=== PATIENT | female | born 1940 | race Caucasian/White ===

== ENCOUNTER 2018-02-13 18:55 | Inpatient (IN) | payer MEDICARE, SELFPAY ==
[2017-11-30 06:28] VITALS: BMI 28.6
[2018-02-13] VITALS (10 sets, daily range): BP systolic 118–135; BP diastolic 31–71; PULSE 86–106; RESP 19–36; TEMP 36.6–36.7; O2SAT 86–99
--- NOTE | 2018-02-13 19:22 | PC.NURSE ---
Pt states that she feels fine. Pt is observed to be in tripod position. 92% on 4L.
--- NOTE | 2018-02-13 19:32 | DI.RAD.S_ITS ---
PROCEDURE: XR CHEST 1V INDICATIONS: SOB TECHNIQUE: One view of the chest was acquired. COMPARISON: [facility], CR, XR CHEST 1V, 11/30/2017, 9:33. FINDINGS: Surgical changes and devices: None. Lungs and pleura: There is increased pulmonary vascularity. Increased patchy opacities are present within the right base. Trace bilateral effusions. Mild appearance increased opacity is noted in the left perihilar region. Mediastinum: Mediastinal contours appear normal. Heart size is mildly enlarged. Bones and chest wall: No suspicious bony lesions. Overlying soft tissues appear unremarkable. IMPRESSION: Trace effusions with bilateral opacities most prominent in the right base, suggestive of developing airspace disease such as pneumonia. Focal edema cannot be excluded. Recommend interval followup to document resolution and exclude presence of underlying mass lesion, particularly left perihilar opacity. Dictated by: Dayna Thao M.D. on 02/13/2018 at 20:41 Approved by: Dayna Thao M.D. on 02/13/2018 at 20:42
--- NOTE | 2018-02-13 19:36 | ED.WEAKNESS ---
HPI - Weakness General Chief complaint: Weakness Stated complaint: Lethargic Time Seen by Provider: 02/13/18 19:00 Source: patient, family and EMS Mode of arrival: EMS Limitations: no limitations History of Present Illness HPI Narrative: 77-year-old female presents by EMS for evaluation of lethargy and increased difficulty in breathing at home. She has a long history end-stage COPD and is on home oxygen at 2.5 liters/minute. She has been much more sleepy than normal with decreased appetite. She denies any fever or chills but has had cough which family reports sounding harsh. She denies any increase in her oxygen or use of nebulizers. She has had no nausea, vomiting or diarrhea. Last admission In November for a lower GI bleed. Patient herself is rather cantankerous and states she does not want to be here, much of the history from family MD Complaint: generalized weakness Onset (ago): day(s) Duration: constant Location: generalized Migration: none Severity: moderate Relieving factors: none Exacerbating factors: movement Related Data Home Medications Medication Instructions Recorded Confirmed aspirin 325 mg PO DAILY 11/30/17 02/13/18 metoprolol succinate [Toprol XL] 25 mg PO QDAY 11/30/17 02/13/18 simvastatin [Zocor] 20 mg PO QHS 11/30/17 02/13/18 Previous Rx's Medication Instructions Recorded albuterol sulfate 2.5 mg INH [id number] PRN #100 neb 12/04/17 furosemide 20 mg PO DAILY #30 tab 12/04/17 tiotropium bromide [Spiriva with 18 mcg INH RTDAILY #1 inh 12/04/17 [facility]] Allergies Allergy/AdvReac Type Severity Reaction Status Date / Time No Known Drug Allergies Allergy Verified 11/30/17 04:48 Review of Systems Review of Systems All systems reviewed & are unremarkable except as noted in HPI and below Constitutional Denies chills, Denies fever(s), Denies lethargy and Denies weakness Eyes Denies change in vision, Denies eye discharge, Denies irritation and Denies loss of vision ENT Ears, Nose, Mouth, and Throat: Denies change in voice, Denies neck pain and Denies sore throat Cardiovascular Denies chest pain, Denies irregular heart rhythm, Denies lightheadedness, Denies palpitations, Reports dyspnea, Reports dyspnea on exertion and Denies orthopnea Respiratory Reports cough, Reports dyspnea, Reports dyspnea on exertion and Denies wheezing Gastrointestinal Gastrointestinal: Denies abdominal pain, Denies change in bowel habits, Denies diarrhea, Denies nausea and Denies vomiting Genitourinary Denies hematuria, Denies flank pain, Denies urinary incontinence and Denies urinary urgency Musculoskeletal Denies neck pain Integumentary/Breasts Denies pruritus, Denies erythema, Denies rash and Denies wounds Neurologic Denies confusion, Denies loss of vision and Denies weakness Psychiatric Denies anxiety, Denies confusion, Denies depression, Denies homicidal ideation and Denies suicidal ideation Endocrine Denies palpitations Hematologic/Lymphatic Denies easy bruising Allergic/Immunologic Denies wheezing [facility] Social History household members: family Smoking Status: Former smoker alcohol intake: former Exam Narrative Exam Narrative: 77-year-old female is a bit grumpy but playful, she is in mild distress with conversational dyspnea Initial Vital Signs Initial Vital Signs: Vital Signs Temperature 98.1 F 02/13/18 18:57 Pulse Rate 106 H 02/13/18 18:57 Respiratory Rate 31 H 02/13/18 18:57 Blood Pressure 134/59 H 02/13/18 18:57 Pulse Oximetry 86 L 02/13/18 18:57 Const General: cooperative, well developed and in distress Nutritional Appearance: well nourished Orientation: alert, awake, oriented x3 and not confused [facility] Head: normocephalic and atraumatic Ears: external ears normal and TM's normal bilaterally Nose: external nose normal and No nasal discharge Face and sinus: sinuses nontender, face symmetric, no sinus tenderness and No dry mucous membranes Mouth: oral mucosae normal and moist mucous membranes Teeth and gingiva: dentition normal Throat: tonsils normal and uvula midline Eyes General: appearance normal, both eyes and all related structures Eyelids: eyelids normal Conjunctivae: conjunctivae normal Sclera: sclerae normal Pupils: PERRL EOM: EOM intact bilaterally Neck Neck: normal visual inspection, trachea midline, No lymphadenopathy, No midline deformity and No JVD Lymphatic: No lymphedema Chest Chest: normal inspection of the chest Resp Effort & Inspection: abnormal respiratory pattern, audible wheezes, cough, respiratory distress and no use of accessory muscles Auscultation: diminished lung sounds, no rales, rhonchi and no wheezes Cardio Rate: regular rate Rhythm: regular rhythm Heart Sounds: no click, no gallops, no murmurs and no rubs Pulses: normal peripheral pulses GI Inspection: non-distended Palpation: soft, no hepatosplenomegaly, No guarding, No pulsatile mass and No tender Auscultation: normal bowel sounds Back/Spine/Pelvis Back: No CVA tenderness Cervical Spine: cervical ROM normal and No pain with cervical ROM Thoracic/Lumbar Spine: thoracic and lumbar spine normal to inspection Skin General: no rashes or lesions noted, No jaundice and No petechiae Neuro General: alert, oriented x3, gait normal and no focal motor deficits Speech: speech normal Extrem General: full ROM, no clubbing, cyanosis or edema, no pedal edema and no calf tenderness Psych Appearance: well kempt Mental Status: mental status grossly normal Attitude: cooperative Thought Content: normal and suicidality Judgment: judgment good Course Orders Ordered: ED Orders 02/13/18 21:30 Urinalysis and Microscopic Stat Urine Culture Stat 02/13/18 21:52 Blood Culture Stat Acetaminophen (Tylenol) 650 mg PO Q6HR PRN PRN Reason: As Needed for Fever/Mild Pain Albuterol (Ventolin) 2.5 mg INH [id number] PRN PRN Reason: Shortness Of Breath Albuterol/Ipratropium (Duoneb) 3 ml INH [id number] NISA Enoxaparin Sodium (Lovenox) 40 mg SUBCUT DAILY NISA Sodium Chloride (Normal Saline 0.9%) 1,000 mls @ 100 mls/hr IV CONT NISA Last Admin: 02/13/18 23:07 Dose: 100 mls/hr Methylprednisolone (Solu-Medrol 125 Mg Vial) 60 mg IV Q8HR NISA Ondansetron HCl (Zofran) 4 mg IV Q4HR PRN PRN Reason: Nausea And Vomiting Pantoprazole Sodium (Protonix) 40 mg IV NOW ONE Stop: 02/14/18 06:17 Discontinued Medications Albuterol/Ipratropium (Duoneb) 3 ml INH NOW ONE Stop: 02/13/18 19:32 Last Admin: 02/13/18 19:58 Dose: 3 ml Sodium Chloride (Normal Saline 0.9%) 1,000 mls @ 150 mls/hr IV CONT NISA Last Infusion: 02/13/18 22:33 Dose: 0 mls/hr Admin: 02/13/18 20:05 Dose: 150 mls/hr Azithromycin 500 mg/ Dextrose 250 mls @ 250 mls/hr IV NOW ONE Stop: 02/13/18 21:21 Last Infusion: 02/13/18 22:36 Dose: 0 mls/hr Admin: 02/13/18 22:30 Dose: 250 mls/hr Ceftriaxone Sodium/Dextrose (Rocephin) 1 gm in 50 mls @ 100 mls/hr IV NOW ONE Stop: 02/13/18 21:49 Last Infusion: 02/13/18 22:26 Dose: 0 mls/hr Admin: 02/13/18 21:56 Dose: 100 mls/hr Methylprednisolone (Solu-Medrol 125 Mg Vial) 125 mg IV NOW ONE Stop: 02/13/18 19:32 Last Admin: 02/13/18 20:05 Dose: 125 mg Methylprednisolone (Solu-Medrol 125 Mg Vial) 80 mg IV Q8HR [facility] Reevaluation(s) Reevaluation #1: patient shows some improvement after bronchodilators and steroid. Consultations Consultation #1: Dr. Porter happy to accept patient Vital Signs - 8 hr 02/13/18 21:04 02/13/18 21:49 02/13/18 22:08 Temperature Pulse Rate 89 99 H 86 Respiratory Rate 21 19 23 Blood Pressure Blood Pressure [Left Arm] 120/41 L 135/71 H 121/53 H Pulse Oximetry 93 99 92 02/13/18 22:34 02/13/18 22:49 02/13/18 23:18 Temperature 97.9 F Pulse Rate 98 H 87 Respiratory Rate 30 H 36 H Blood Pressure 121/53 H 127/58 H Blood Pressure [Left Arm] Pulse Oximetry 95 89 L 93 02/14/18 00:55 Temperature Pulse Rate Respiratory Rate Blood Pressure Blood Pressure [Left Arm] Pulse Oximetry 93 MDM - Weakness Medical Records Attestation: I reviewed the patient's medical records. Lab Data Attestation: I reviewed the patient's lab results. Result diagrams: 02/13/18 19:48 02/13/18 19:48 Lab Results 07/21/18 07/21/18 07/21/18 Range/Units 19:48 19:48 19:48 WBC 16.7 H (4.5-11.0) X10^3/uL RBC 5.29 H (4.0-5.2) X10^6/uL Hgb 11.3 L (12.0-16.0) g/dL Hct 40.1 (36-46) % MCV 75.8 L (80-100) fL MCH 21.4 L (26-34) PG MCHC 28.2 L (30-36) % RDW 16.6 H (11.6-14.8) % Plt Count 667 H (150-400) X10^3/uL Neut % (Auto) 94.9 H (50-75) % Lymph % (Auto) 2.1 L (25-40) % [place] % (Auto) 2.5 L (3-14) % Eos % (Auto) 0.1 L (2-4) % Baso % (Auto) 0.4 (0-2) % Neut # (Auto) 77564 H (0433-8965) /uL Sodium 145 (137-145) mmol/L Potassium 5.0 (3.4-5.1) mmol/L Chloride 91 L (98-107) mmol/L Carbon Dioxide 47 H* (22-32) mmol/L BUN 47 H (7-17) mg/dL Creatinine 0.60 (0.52-1.04) mg/dL Estimated GFR > 60.0 (>60) mL/min BUN/Creatinine Ratio 78.3 H (6-22) Glucose 160 H (80-110) mg/dL Lactate (0.7-2.1) mmol/L Calcium 9.1 (8.4-10.2) mg/dL Magnesium 2.2 (1.6-2.3) mg/dL Total Creatine Kinase 24 L (30-135) U/L Troponin I < 0.012 (0.01-0.034) ng/mL B-Natriuretic Peptide 175.0 H (<100) Procalcitonin 0.06 (<0.5) ng/mL Urine Color Urine Appearance Urine pH (4.5-8.0) Ur Specific [place] (1.000-1.035) Urine Protein (Negative) Urine Glucose (UA) (Normal) g/dL Urine Ketones (NEGATIVE) Urine Occult Blood (Negative) Urine Nitrate (Negative) Urine Bilirubin (NEGATIVE) Urine Urobilinogen (0.2) E.U./dL Ur Leukocyte Esterase (NEGATIVE) Urine RBC (0-5/HPF) Urine WBC (0-5/HPF) Ur Squamous Epith Cells Urine Bacteria (None) Hyaline Casts (None) Granular Casts (None) Ur Culture Indicated? Micro UA Comment 02/13/18 02/13/18 Range/Units 19:48 21:30 WBC (4.5-11.0) X10^3/uL RBC (4.0-5.2) X10^6/uL Hgb (12.0-16.0) g/dL Hct (36-46) % MCV (80-100) fL MCH (26-34) PG MCHC (30-36) % RDW (11.6-14.8) % Plt Count (150-400) X10^3/uL Neut % (Auto) (50-75) % Lymph % (Auto) (25-40) % [place] % (Auto) (3-14) % Eos % (Auto) (2-4) % Baso % (Auto) (0-2) % Neut # (Auto) (3083-0330) /uL Sodium (137-145) mmol/L Potassium (3.4-5.1) mmol/L Chloride (98-107) mmol/L Carbon Dioxide (22-32) mmol/L BUN (7-17) mg/dL Creatinine (0.52-1.04) mg/dL Estimated GFR (>60) mL/min BUN/Creatinine Ratio (6-22) Glucose (80-110) mg/dL Lactate 0.8 (0.7-2.1) mmol/L Calcium (8.4-10.2) mg/dL Magnesium (1.6-2.3) mg/dL Total Creatine Kinase (30-135) U/L Troponin I (0.01-0.034) ng/mL B-Natriuretic Peptide (<100) Procalcitonin (<0.5) ng/mL Urine Color Yellow Urine Appearance Slightly cloudy Urine pH 5.0 (4.5-8.0) Ur Specific [place] >=1.030 H (1.000-1.035) Urine Protein 1+ H (Negative) Urine Glucose (UA) Negative (Normal) g/dL Urine Ketones Negative (NEGATIVE) Urine Occult Blood Trace-lysed (Negative) Urine Nitrate Negative (Negative) Urine Bilirubin Negative (NEGATIVE) Urine Urobilinogen 0.2 (0.2) E.U./dL Ur Leukocyte Esterase Negative (NEGATIVE) Urine RBC 0-1/hpf (0-5/HPF) Urine WBC 1-5/hpf (0-5/HPF) Ur Squamous Epith Cells 0-1 /hpf Urine Bacteria Many (>30) H (None) Hyaline Casts 0-1/lpf (None) Granular Casts 0-1/lpf (None) Ur Culture Indicated? Specimen cultured Micro UA Comment Not Reportable Imaging Data Chest x-ray: Radiologist's impression: PROCEDURE: XR CHEST 1V INDICATIONS: SOB TECHNIQUE: One view of the chest was acquired. COMPARISON: [facility], , XR CHEST 1V, 11/30/2017, 9:33. FINDINGS: Surgical changes and devices: None. Lungs and pleura: There is increased pulmonary vascularity. Increased patchy opacities are present within the right base. Trace bilateral effusions. Mild appearance increased opacity is noted in the left perihilar region. Mediastinum: Mediastinal contours appear normal. Heart size is mildly enlarged. Bones and chest wall: No suspicious bony lesions. Overlying soft tissues appear unremarkable. IMPRESSION: Trace effusions with bilateral opacities most prominent in the right base, suggestive of developing airspace disease such as pneumonia. Focal edema cannot be excluded. Recommend interval followup to document resolution and exclude presence of underlying mass lesion, particularly left perihilar opacity. Dictated by: Dayna Thao M.D. on 02/13/2018 at 20:41 Approved by: Dayna Thao M.D. on 02/13/2018 at 20:42 [facility] Narrative Medical decision making narrative: 77-year-old frail patient, ill at baseline has bilateral pneumonia and increased oxygen requirements. Any conversation or movement dropped her pulse ox into the mid to upper 80s. She is not likely to do well at home and will require few days IV antibiotics, hydration and stabilization of her condition Discharge Plan Departure Patient Disposition: Admitted As Inpatient Clinical Impression: Pneumonia, Acute exacerbation of chronic obstructive pulmonary disease (COPD) Discharge Date/Time: 02/13/18 22:36 Interventions: ED Discharge Assessment Last Done: 02/13/18 22:35 Admit Date/Time: 02/13/18 22:21 Admit Provider: Deann Porter
[2018-02-13] MEDS: ALBUTEROL/IPRATROPIUM 3 ML AMPUL INH (19:58)
[2018-02-13 20:00] LABS: Add Manual Diff / Slide Review NO; Basophils Percent Auto 0.4 % (0-2); Eosinophils Percent Auto 0.1 % (2-4); Hematocrit 40.1 % (36-46); Hemoglobin 11.3 g/dL (12.0-16.0); Lymphocytes Percent Auto 2.1 % (25-40); Mean Corpuscular HGB Conc 28.2 % (30-36); Mean Corpuscular Hemoglobin 21.4 PG (26-34); Mean Corpuscular Volume 75.8 fL (80-100); Monocytes Percent Auto 2.5 % (3-14); Neutrophils Absolute Auto 15900 /uL (3000-5900); Neutrophils Percent Auto 94.9 % (50-75); Platelet Count 667 X10^3/uL (150-400); Red Blood Cell Count 5.29 X10^6/uL (4.0-5.2); Red Cell Distribution Width 16.6 % (11.6-14.8); White Blood Cell Count 16.7 X10^3/uL (4.5-11.0)
[2018-02-13] MEDS: SODIUM CHLORIDE 0.9% 1,000 ML 150 ML IV (20:05)
[2018-02-13] MEDS: methylPREDNISolone 125 MG/2 ML VIAL IV (20:05)
[2018-02-13 20:15] LABS: Lactate (Lactic Acid) 0.8 mmol/L (0.7-2.1)
[2018-02-13 20:16] LABS: BUN Creatinine Ratio 78.3 (6-22); Blood Urea Nitrogen 47 mg/dL (7-17); Calcium 9.1 mg/dL (8.4-10.2); Chloride 91 mmol/L (98-107); Creatine Kinase 24 U/L (30-135); Estimated Glomerular Filt Rate > 60.0 mL/min (>60); Glucose 160 mg/dL (80-110); HEMOLYSIS 32 (0-50); Magnesium 2.2 mg/dL (1.6-2.3); Sodium 145 mmol/L (137-145)
[2018-02-13 20:31] LABS: Troponin I < 0.012 ng/mL (0.01-0.034)
[2018-02-13 20:33] LABS: Carbon Dioxide 47 mmol/L (22-32); Procalcitonin 0.06 ng/mL (<0.5)
--- NOTE | 2018-02-13 21:17 | ED_ITS ---
HPI - Weakness General Chief complaint: Weakness Stated complaint: Lethargic Time Seen by Provider: 02/13/18 19:00 Source: patient, family and EMS Mode of arrival: EMS Limitations: no limitations History of Present Illness HPI Narrative: 77-year-old female presents by EMS for evaluation of lethargy and increased difficulty in breathing at home. She has a long history end- stage COPD and is on home oxygen at 2.5 liters/minute. She has been much more sleepy than normal with decreased appetite. She denies any fever or chills but has had cough which family reports sounding harsh. She denies any increase in her oxygen or use of nebulizers. She has had no nausea, vomiting or diarrhea. Last admission In November for a lower GI bleed. Patient herself is rather cantankerous and states she does not want to be here, much of the history from family MD Complaint: generalized weakness Onset (ago): day(s) Duration: constant Location: generalized Migration: none Severity: moderate Relieving factors: none Exacerbating factors: movement Related Data Home Medications Medication Instructions Recorded Confirmed aspirin 325 mg PO DAILY 11/30/17 02/13/18 metoprolol succinate [Toprol XL] 25 mg PO QDAY 11/30/17 02/13/18 simvastatin [Zocor] 20 mg PO QHS 11/30/17 02/13/18 Previous Rx's Medication Instructions Recorded albuterol sulfate 2.5 mg INH [id number] PRN #100 neb 12/04/17 furosemide 20 mg PO DAILY #30 tab 12/04/17 tiotropium bromide [Spiriva with 18 mcg INH RTDAILY #1 inh 12/04/17 HandiHaler] Allergies Allergy/AdvReac Type Severity Reaction Status Date / Time No Known Drug Allergies Allergy Verified 11/30/17 04:48 Review of Systems Review of Systems All systems reviewed & are unremarkable except as noted in HPI and below Constitutional Denies chills, Denies fever(s), Denies lethargy and Denies weakness Eyes Denies change in vision, Denies eye discharge, Denies irritation and Denies loss of vision ENT Ears, Nose, Mouth, and Throat: Denies change in voice, Denies neck pain and Denies sore throat Cardiovascular Denies chest pain, Denies irregular heart rhythm, Denies lightheadedness, Denies palpitations, Reports dyspnea, Reports dyspnea on exertion and Denies orthopnea Respiratory Reports cough, Reports dyspnea, Reports dyspnea on exertion and Denies wheezing Gastrointestinal Gastrointestinal: Denies abdominal pain, Denies change in bowel habits, Denies diarrhea, Denies nausea and Denies vomiting Genitourinary Denies hematuria, Denies flank pain, Denies urinary incontinence and Denies urinary urgency Musculoskeletal Denies neck pain Integumentary/Breasts Denies pruritus, Denies erythema, Denies rash and Denies wounds Neurologic Denies confusion, Denies loss of vision and Denies weakness Psychiatric Denies anxiety, Denies confusion, Denies depression, Denies homicidal ideation and Denies suicidal ideation Endocrine Denies palpitations Hematologic/Lymphatic Denies easy bruising Allergic/Immunologic Denies wheezing [facility] Social History household members: family Smoking Status: Former smoker alcohol intake: former Exam Narrative Exam Narrative: 77-year-old female is a bit grumpy but playful, she is in mild distress with conversational dyspnea Initial Vital Signs Initial Vital Signs: Vital Signs Temperature 98.1 F 02/13/18 18:57 Pulse Rate 106 H 02/13/18 18:57 Respiratory Rate 31 H 02/13/18 18:57 Blood Pressure 134/59 H 02/13/18 18:57 Pulse Oximetry 86 L 02/13/18 18:57 Const General: cooperative, well developed and in distress Nutritional Appearance: well nourished Orientation: alert, awake, oriented x3 and not confused [facility] Head: normocephalic and atraumatic Ears: external ears normal and TM's normal bilaterally Nose: external nose normal and No nasal discharge Face and sinus: sinuses nontender, face symmetric, no sinus tenderness and No dry mucous membranes Mouth: oral mucosae normal and moist mucous membranes Teeth and gingiva: dentition normal Throat: tonsils normal and uvula midline Eyes General: appearance normal, both eyes and all related structures Eyelids: eyelids normal Conjunctivae: conjunctivae normal Sclera: sclerae normal Pupils: PERRL EOM: EOM intact bilaterally Neck Neck: normal visual inspection, trachea midline, No lymphadenopathy, No midline deformity and No JVD Lymphatic: No lymphedema Chest Chest: normal inspection of the chest Resp Effort & Inspection: abnormal respiratory pattern, audible wheezes, cough, respiratory distress and no use of accessory muscles Auscultation: diminished lung sounds, no rales, rhonchi and no wheezes Cardio Rate: regular rate Rhythm: regular rhythm Heart Sounds: no click, no gallops, no murmurs and no rubs Pulses: normal peripheral pulses GI Inspection: non-distended Palpation: soft, no hepatosplenomegaly, No guarding, No pulsatile mass and No tender Auscultation: normal bowel sounds Back/Spine/Pelvis Back: No CVA tenderness Cervical Spine: cervical ROM normal and No pain with cervical ROM Thoracic/Lumbar Spine: thoracic and lumbar spine normal to inspection Skin General: no rashes or lesions noted, No jaundice and No petechiae Neuro General: alert, oriented x3, gait normal and no focal motor deficits Speech: speech normal Extrem General: full ROM, no clubbing, cyanosis or edema, no pedal edema and no calf tenderness Psych Appearance: well kempt Mental Status: mental status grossly normal Attitude: cooperative Thought Content: normal and suicidality Judgment: judgment good Course Orders Ordered: ED Orders 02/13/18 21:30 Urinalysis and Microscopic Stat Urine Culture Stat 02/13/18 21:52 Blood Culture Stat Acetaminophen (Tylenol) 650 mg PO Q6HR PRN PRN Reason: As Needed for Fever/Mild Pain Albuterol (Ventolin) 2.5 mg INH [id number] PRN PRN Reason: Shortness Of Breath Albuterol/Ipratropium (Duoneb) 3 ml INH [id number] NISA Enoxaparin Sodium (Lovenox) 40 mg SUBCUT DAILY NISA Sodium Chloride (Normal Saline 0.9%) 1,000 mls @ 100 mls/hr IV CONT NISA Last Admin: 02/13/18 23:07 Dose: 100 mls/hr Methylprednisolone (Solu-Medrol 125 Mg Vial) 60 mg IV Q8HR NISA Ondansetron HCl (Zofran) 4 mg IV Q4HR PRN PRN Reason: Nausea And Vomiting Pantoprazole Sodium (Protonix) 40 mg IV NOW ONE Stop: 02/14/18 06:17 Discontinued Medications Albuterol/Ipratropium (Duoneb) 3 ml INH NOW ONE Stop: 02/13/18 19:32 Last Admin: 02/13/18 19:58 Dose: 3 ml Sodium Chloride (Normal Saline 0.9%) 1,000 mls @ 150 mls/hr IV CONT NISA Last Infusion: 02/13/18 22:33 Dose: 0 mls/hr Admin: 02/13/18 20:05 Dose: 150 mls/hr Azithromycin 500 mg/ Dextrose 250 mls @ 250 mls/hr IV NOW ONE Stop: 02/13/18 21:21 Last Infusion: 02/13/18 22:36 Dose: 0 mls/hr Admin: 02/13/18 22:30 Dose: 250 mls/hr Ceftriaxone Sodium/Dextrose (Rocephin) 1 gm in 50 mls @ 100 mls/hr IV NOW ONE Stop: 02/13/18 21:49 Last Infusion: 02/13/18 22:26 Dose: 0 mls/hr Admin: 02/13/18 21:56 Dose: 100 mls/hr Methylprednisolone (Solu-Medrol 125 Mg Vial) 125 mg IV NOW ONE Stop: 02/13/18 19:32 Last Admin: 02/13/18 20:05 Dose: 125 mg Methylprednisolone (Solu-Medrol 125 Mg Vial) 80 mg IV Q8HR [facility] Reevaluation(s) Reevaluation #1: patient shows some improvement after bronchodilators and steroid. Consultations Consultation #1: Dr. Porter happy to accept patient Vital Signs - 8 hr 02/13/18 21:04 02/13/18 21:49 02/13/18 22:08 Temperature Pulse Rate 89 99 H 86 Respiratory Rate 21 19 23 Blood Pressure Blood Pressure [Left Arm] 120/41 L 135/71 H 121/53 H Pulse Oximetry 93 99 92 02/13/18 22:34 02/13/18 22:49 02/13/18 23:18 Temperature 97.9 F Pulse Rate 98 H 87 Respiratory Rate 30 H 36 H Blood Pressure 121/53 H 127/58 H Blood Pressure [Left Arm] Pulse Oximetry 95 89 L 93 02/14/18 00:55 Temperature Pulse Rate Respiratory Rate Blood Pressure Blood Pressure [Left Arm] Pulse Oximetry 93 MDM - Weakness Medical Records Attestation: I reviewed the patient's medical records. Lab Data Attestation: I reviewed the patient's lab results. Result diagrams: 02/13/18 19:48 02/13/18 19:48 Lab Results 07/21/18 07/21/18 07/21/18 Range/Units 19:48 19:48 19:48 WBC 16.7 H (4.5-11.0) X10^3/uL RBC 5.29 H (4.0-5.2) X10^6/uL Hgb 11.3 L (12.0-16.0) g/dL Hct 40.1 (36-46) % MCV 75.8 L (80-100) fL MCH 21.4 L (26-34) PG MCHC 28.2 L (30-36) % RDW 16.6 H (11.6-14.8) % Plt Count 667 H (150-400) X10^3/uL Neut % (Auto) 94.9 H (50-75) % Lymph % (Auto) 2.1 L (25-40) % [place] % (Auto) 2.5 L (3-14) % Eos % (Auto) 0.1 L (2-4) % Baso % (Auto) 0.4 (0-2) % Neut # (Auto) 83510 H (7137-8992) /uL Sodium 145 (137-145) mmol/L Potassium 5.0 (3.4-5.1) mmol/L Chloride 91 L (98-107) mmol/L Carbon Dioxide 47 H* (22-32) mmol/L BUN 47 H (7-17) mg/dL Creatinine 0.60 (0.52-1.04) mg/dL Estimated GFR > 60.0 (>60) mL/min BUN/Creatinine Ratio 78.3 H (6-22) Glucose 160 H (80-110) mg/dL Lactate (0.7-2.1) mmol/L Calcium 9.1 (8.4-10.2) mg/dL Magnesium 2.2 (1.6-2.3) mg/dL Total Creatine Kinase 24 L (30-135) U/L Troponin I < 0.012 (0.01-0.034) ng/mL B-Natriuretic Peptide 175.0 H (<100) Procalcitonin 0.06 (<0.5) ng/mL Urine Color Urine Appearance Urine pH (4.5-8.0) Ur Specific [place] (1.000-1.035) Urine Protein (Negative) Urine Glucose (UA) (Normal) g/dL Urine Ketones (NEGATIVE) Urine Occult Blood (Negative) Urine Nitrate (Negative) Urine Bilirubin (NEGATIVE) Urine Urobilinogen (0.2) E.U./dL Ur Leukocyte Esterase (NEGATIVE) Urine RBC (0-5/HPF) Urine WBC (0-5/HPF) Ur Squamous Epith Cells Urine Bacteria (None) Hyaline Casts (None) Granular Casts (None) Ur Culture Indicated? Micro UA Comment 02/13/18 02/13/18 Range/Units 19:48 21:30 WBC (4.5-11.0) X10^3/uL RBC (4.0-5.2) X10^6/uL Hgb (12.0-16.0) g/dL Hct (36-46) % MCV (80-100) fL MCH (26-34) PG MCHC (30-36) % RDW (11.6-14.8) % Plt Count (150-400) X10^3/uL Neut % (Auto) (50-75) % Lymph % (Auto) (25-40) % [place] % (Auto) (3-14) % Eos % (Auto) (2-4) % Baso % (Auto) (0-2) % Neut # (Auto) (4311-0976) /uL Sodium (137-145) mmol/L Potassium (3.4-5.1) mmol/L Chloride (98-107) mmol/L Carbon Dioxide (22-32) mmol/L BUN (7-17) mg/dL Creatinine (0.52-1.04) mg/dL Estimated GFR (>60) mL/min BUN/Creatinine Ratio (6-22) Glucose (80-110) mg/dL Lactate 0.8 (0.7-2.1) mmol/L Calcium (8.4-10.2) mg/dL Magnesium (1.6-2.3) mg/dL Total Creatine Kinase (30-135) U/L Troponin I (0.01-0.034) ng/mL B-Natriuretic Peptide (<100) Procalcitonin (<0.5) ng/mL Urine Color Yellow Urine Appearance Slightly cloudy Urine pH 5.0 (4.5-8.0) Ur Specific [place] >=1.030 H (1.000-1.035) Urine Protein 1+ H (Negative) Urine Glucose (UA) Negative (Normal) g/dL Urine Ketones Negative (NEGATIVE) Urine Occult Blood Trace-lysed (Negative) Urine Nitrate Negative (Negative) Urine Bilirubin Negative (NEGATIVE) Urine Urobilinogen 0.2 (0.2) E.U./dL Ur Leukocyte Esterase Negative (NEGATIVE) Urine RBC 0-1/hpf (0-5/HPF) Urine WBC 1-5/hpf (0-5/HPF) Ur Squamous Epith Cells 0-1 /hpf Urine Bacteria Many (>30) H (None) Hyaline Casts 0-1/lpf (None) Granular Casts 0-1/lpf (None) Ur Culture Indicated? Specimen cultured Micro UA Comment Not Reportable Imaging Data Chest x-ray: Radiologist's impression: PROCEDURE: XR CHEST 1V INDICATIONS: SOB TECHNIQUE: One view of the chest was acquired. COMPARISON: [facility], , XR CHEST 1V, 11/30/2017, 9:33. FINDINGS: Surgical changes and devices: None. Lungs and pleura: There is increased pulmonary vascularity. Increased patchy opacities are present within the right base. Trace bilateral effusions. Mild appearance increased opacity is noted in the left perihilar region. Mediastinum: Mediastinal contours appear normal. Heart size is mildly enlarged. Bones and chest wall: No suspicious bony lesions. Overlying soft tissues appear unremarkable. IMPRESSION: Trace effusions with bilateral opacities most prominent in the right base, suggestive of developing airspace disease such as pneumonia. Focal edema cannot be excluded. Recommend interval followup to document resolution and exclude presence of underlying mass lesion, particularly left perihilar opacity. Dictated by: Dayna Thao M.D. on 02/13/2018 at 20:41 Approved by: Dayna Thao M.D. on 02/13/2018 at 20:42 [facility] Narrative Medical decision making narrative: 77-year-old frail patient, ill at baseline has bilateral pneumonia and increased oxygen requirements. Any conversation or movement dropped her pulse ox into the mid to upper 80s. She is not likely to do well at home and will require few days IV antibiotics, hydration and stabilization of her condition Discharge Plan Departure Patient Disposition: Admitted As Inpatient Clinical Impression: Pneumonia, Acute exacerbation of chronic obstructive pulmonary disease (COPD) Discharge Date/Time: 02/13/18 22:36 Interventions: ED Discharge Assessment Last Done: 02/13/18 22:35 Admit Date/Time: 02/13/18 22:21 Admit Provider: Deann Porter
[2018-02-13 21:51] LABS: Bilirubin Urine UA NEGATIVE (NEGATIVE); Color Urine UA YELLOW; Glucose Urine UA NEGATIVE (Normal); Ketones Urine UA NEGATIVE (NEGATIVE); Leukocyte Esterase Urine UA NEGATIVE (NEGATIVE); Nitrite Urine UA Negative (Negative); Occult Blood Urine UA TRACE-LYSED (Negative); Protein Urine UA 1+ (Negative); Specific Gravity Urine UA >=1.030 (1.000-1.035); Urobilinogen Urine UA 0.2 E.U./dL (0.2)
[2018-02-13 21:53] LABS: Appearance Urine UA Slightly Cloudy
[2018-02-13] MEDS: CEFTRIAXONE 1 GM/50 ML FROZ.PIGGY IV (21:56)
[2018-02-13 22:16] LABS: RBC Urine 0-1/HPF (0-5/HPF)
[2018-02-13 22:17] LABS: Bacteria Urine Many (>30)
[2018-02-13 22:18] LABS: Culture Indicated Urine Specimen Cultured; Granular Casts Urine 0-1/LPF; Hyaline Casts Urine 0-1/LPF; Squamous Epithelial Cell Urine 0-1 /HPF; WBC Urine 1-5/HPF (0-5/HPF)
[2018-02-13] MEDS: AZITHROMYCIN 500 MG in DEXTROSE 5% IN WATER 250 ML IV (22:30)
[2018-02-13] MEDS: SODIUM CHLORIDE 0.9% 1,000 ML 100 ML IV (23:07)
[2018-02-13] MEDS: ALBUTEROL 2.5 MG/3 ML NEB (ADULT) INH (23:18)
--- NOTE | 2018-02-13 23:35 | PC.NURSE ---
Pt to room 222 from E.R. with daughter's x 2 accompanying pt. Pt is profoundly dyspneic at rest and with exertion. 02 sats with activity 88% on 5L per NC. Pt takes several minutes to recover and 02 sats increase to 94%. Pt using pursed lip breathing with head of bed bolt upright in bed. R.T. in to deliver treatment. IV antibiotics infusing as ordered to right ac IV site without difficulty. R.T. decreased pt's 02 to 3L per NC. Continuous monitor in place.
[2018-02-14] VITALS (15 sets, daily range): BP systolic 100–119; BP diastolic 50–64; PULSE 91–111; RESP 16–28; TEMP 36.7–37.2; O2SAT 84–94
[2018-02-14] MEDS: methylPREDNISolone 125 MG/2 ML VIAL 60 MG IV ×3 (06:03→21:56)
[2018-02-14] MEDS: PANTOPRAZOLE 40 MG VIAL IV (06:07)
[2018-02-14] MEDS: ALBUTEROL/IPRATROPIUM 3 ML AMPUL INH ×4 (06:11→20:03)
[2018-02-14] MEDS: ALBUTEROL 2.5 MG/3 ML NEB (ADULT) INH ×2 (08:15→22:37)
[2018-02-14] MEDS: FUROSEMIDE 20 MG TABLET PO (09:40)
[2018-02-14] MEDS: METOPROLOL ER 25 MG TABLET PO (09:40)
[2018-02-14] MEDS: SODIUM CHLORIDE 0.9% 1,000 ML 100 ML IV (10:22)
[2018-02-14] MEDS: ENOXAPARIN 40 MG/0.4 ML SYRINGE SUBCUT (12:00)
--- NOTE | 2018-02-14 15:10 | CM.DANOTE ---
Discharge Planning/Care Management DCP: assessment: case received, EMR reviewed and met with pt and one of her daughters this morning 0900. Introduced self and role. Am familiar with pt from her last admission to , November 2017. Pt is a 77 year old female who admitted to care of Dr. Porter last evening. Only ER note is available at this point (1500) but Dr. Porter is here now to see pt. PCP: Dr. Huntley Payer: Medicare and [employer]. Pt lives with her sister Lalitha Bar/[place]. She has several daughters who are here now to speak with Dr. Porter. Pt notes she is not happy to be in the hospital. DCP team to continue to follow as POC unfolds. HH was discussed during the last visit a few times but on day of d/c pt did refuse this. Anticipate PT and OT will see pt when she is medically ready for this. 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 Review Status In Process Next Review Type Continued Stay Review
--- NOTE | 2018-02-14 15:18 | P.HP_ITS ---
History of Present Illness Date Patient Seen: 02/14/18 Time Patient Seen: 15:00 Chief complaint: Lethargic Narrative: This pleasant 77-year-old patient of Dr. Chris Brooks presents to emergency department via ambulance for complaints of lethargy and difficulty breathing. She has a history of COPD and has had a productive cough worsening over the last several days to weeks with progressive fatigue, somnolence, lethargy and dyspnea. In the emergency department she was found to have hypoxemia and on chest x-ray to have evidence of a pneumonia. She is typically on home oxygen at 2-2.5 L continuously. She has a history of chronic peripheral edema has well and there has been no change in this. She states that she is is feeling better from last night but is still very fatigued and was unable to sleep. Past medical history: 1. COPD on chronic home oxygen 2. Tobacco abuse, quit 4 years ago 3. Hypertension 4. Hyperlipidemia 5. Peripheral edema 6. Previous cellulitis 7. GI bleed. She was hospitalized for this in November. She did not receive blood transfusion and did not have endoscopy I think primarily because her condition stabilized and because of her poor lung function. 8. Onychomycosis Past surgical history: 1. Total abdominal hysterectomy with a unilateral salpingo oophorectomy Secondary to dysfunctional uterine bleeding 2. Cholecystectomy Health related behavior Patient does not use alcohol. Patient no longer smokes she quit 2 years ago. Patient is sedentary. Extremely. Family history: Dad at 88 from colon cancer Mom at 76 from breast cancer 1 daughter with breast cancer Social history: Patient lives with her sister and her nephew in [facility]. She has 5 daughters. Patient History Family & Social History Social History: household members family Prior Living Arrangements Apartment/Condo Safety & Behavioral: Feels Safe in Current Yes Environment Suicidal Ideation Description None Suicide Plan Description No Plan Tobacco & Substance use: Tobacco type cigarettes Smoking Status Former smoker alcohol intake former Substance Use Type does not use Meds Home Medications Medication Instructions Recorded Confirmed Type aspirin 325 mg PO DAILY 11/30/17 02/13/18 History metoprolol succinate [Toprol XL] 25 mg PO QDAY 11/30/17 02/13/18 History simvastatin [Zocor] 20 mg PO QHS 11/30/17 02/13/18 History albuterol sulfate 2.5 mg INH [id number] PRN #100 neb 12/04/17 02/13/18 Rx furosemide 20 mg PO DAILY #30 tab 12/04/17 02/13/18 Rx tiotropium bromide [Spiriva with 18 mcg INH RTDAILY #1 inh 12/04/17 02/13/18 Rx HandiHaler] Allergies Allergy/AdvReac Type Severity Reaction Status Date / Time No Known Drug Allergies Allergy Verified 11/30/17 04:48 Review of Systems Review of Systems All systems reviewed & are unremarkable except as noted in HPI and below Constitutional Constitutional: Denies headache(s) ENT Ears, Nose, Mouth, and Throat: No dental pain, No headache(s), No nasal congestion, No nasal discharge and No nasal obstruction Cardiovascular Cardiovascular: Denies chest pain, Denies chest pain at rest, Denies chest pain with activity, Denies fainting, Reports foot swelling, Denies irregular heart rhythm, Denies leg pain with activity, Reports leg swelling, Denies radiating jaw, neck or arm pain, Denies rapid, pounding, or irregular heartbeat, Reports shortness of breath, Reports shortness of breath with activity, Denies shortness of breath when lying down and Denies shortness of breath causing sudden awakening Respiratory Respiratory: Reports change in phlegm color, Reports excessive phlegm production , Reports dyspnea and Reports dyspnea on exertion Gastrointestinal Gastrointestinal: Reports abdominal pain, Reports change in stool character, Reports coffee ground emesis, Reports constipation and Reports cramping Neurologic Neurologic: Denies syncope, Denies headache(s) and Reports memory loss Psychiatric Psychiatric: Denies anxiety, Reports anhedonia, Reports memory loss and Reports mood swings Comments: Patient anxious to be in hospital. Makes her worried that she is dying Endocrine Endocrine: Denies palpitations Exam Vital Signs (past 8 hours): - 02/14/18 08:11 02/14/18 08:15 02/14/18 11:53 Temperature 98.1 F Pulse Rate 100 H 111 H Respiratory Rate 18 22 Blood Pressure 100/57 L Pulse Oximetry 93 93 91 02/14/18 12:00 02/14/18 12:45 Temperature 98.9 F Pulse Rate 97 H 103 H Respiratory Rate 18 20 Blood Pressure 113/50 L Pulse Oximetry 91 84 L Oxygen Delivery Method High Flow Nasal Cannula Oxygen Flow Rate 5 Narrative Exam Narrative: The patient is alert and oriented in no apparent distress. She is resting comfortably sitting upright on most try putting in the hospital bed with her sister and 2 daughters present in the room. There is no tachypnea. She does have a very wet congested cough HEENT: Mucous membranes moist and pink. No evidence of thrush. Poor dentition Neck: Supple without masses, thyromegaly, jugular venous distention or bruit Chest: Very poor air exchange with diminished breath sounds bilateral bases and group home up with some rhonchi. No significant wheeze and no significant crackles Cor: Regular rate and rhythm with distant S1 and S2 Abdomen: Positive bowel sounds, soft, nontender, nondistended Extremity: 2+ pitting edema, pedal and lower extremity. Chronic venous stasis changes, scaling but no evidence of cellulitis. No significant erythema or increased warmth and no drainage. Pulses 2+ dorsalis pedis Skin: Scale on lower extremities with chronic venous stasis changes but otherwise no rash noted Neurologic exam. Moves all extremities well. DTRs are intact. Nonfocal Objective Labs Result Diagrams: 02/13/18 19:48 02/13/18 19:48 Labs: Laboratory Results - last 24 hr 02/13/18 02/13/18 02/13/18 19:48 19:48 19:48 WBC 16.7 H RBC 5.29 H Hgb 11.3 L Hct 40.1 MCV 75.8 L MCH 21.4 L MCHC 28.2 L RDW 16.6 H Plt Count 667 H Neut % (Auto) 94.9 H Lymph % (Auto) 2.1 L [place] % (Auto) 2.5 L Eos % (Auto) 0.1 L Baso % (Auto) 0.4 Neut # (Auto) 99936 H Sodium 145 Potassium 5.0 Chloride 91 L Carbon Dioxide 47 H* BUN 47 H Creatinine 0.60 Estimated GFR > 60.0 BUN/Creatinine Ratio 78.3 H Glucose 160 H Lactate Calcium 9.1 Magnesium 2.2 Total Creatine Kinase 24 L Troponin I < 0.012 B-Natriuretic Peptide 175.0 H Procalcitonin 0.06 Urine Color Urine Appearance Urine pH Ur Specific [place] Urine Protein Urine Glucose (UA) Urine Ketones Urine Occult Blood Urine Nitrate Urine Bilirubin Urine Urobilinogen Ur Leukocyte Esterase Urine RBC Urine WBC Ur Squamous Epith Cells Urine Bacteria Hyaline Casts Granular Casts Ur Culture Indicated? Micro UA Comment 02/13/18 02/13/18 19:48 21:30 WBC RBC Hgb Hct MCV MCH MCHC RDW Plt Count Neut % (Auto) Lymph % (Auto) [place] % (Auto) Eos % (Auto) Baso % (Auto) Neut # (Auto) Sodium Potassium Chloride Carbon Dioxide BUN Creatinine Estimated GFR BUN/Creatinine Ratio Glucose Lactate 0.8 Calcium Magnesium Total Creatine Kinase Troponin I B-Natriuretic Peptide Procalcitonin Urine Color Yellow Urine Appearance Slightly cloudy Urine pH 5.0 Ur Specific [place] >=1.030 H Urine Protein 1+ H Urine Glucose (UA) Negative Urine Ketones Negative Urine Occult Blood Trace-lysed Urine Nitrate Negative Urine Bilirubin Negative Urine Urobilinogen 0.2 Ur Leukocyte Esterase Negative Urine RBC 0-1/hpf Urine WBC 1-5/hpf Ur Squamous Epith Cells 0-1 /hpf Urine Bacteria Many (>30) H Hyaline Casts 0-1/lpf Granular Casts 0-1/lpf Ur Culture Indicated? Specimen cultured Micro UA Comment Not Reportable Assessment & Plan Plan: Assessment/Plan Narrative: 77-year-old female Acute on chronic respiratory failure secondary to COPD exacerbation and presumed community-acquired pneumonia. Appears improved from yesterday Plan: Continue inpatient hospitalization. Due to comorbidities I anticipate that patient will be in the hospital for 2 midnights. Will continue with supplemental oxygen. Continue with respiratory therapy and nebulizers as needed Will continue on IV Solu-Medrol. Will continue on IV ceftriaxone and IV azithromycin. Assessment 2. Previous history of GI bleed without acute issues Plan: Protonix IV. Will hold aspirin Assessment 3. DVT prophylaxis Plan: Lovenox subcu Assessment 4. Hypertension Plan: Metoprolol succinate 25 mg daily Assessment 5. Hyperlipidemia Plan: Continue on simvastatin Assessment 6. Peripheral edema Plan: Continue on furosemide Code status is DNI Quality VTE Deep Vein Thrombosis/Pulmonary Embolism Present on Admission: No
[2018-02-14] MEDS: AZITHROMYCIN 250 MG in DEXTROSE 5% IN WATER 250 ML IV (16:39)
[2018-02-14] MEDS: CEFTRIAXONE 1 GM/50 ML FROZ.PIGGY IV (18:00)
[2018-02-14] MEDS: SIMVASTATIN 20 MG TABLET PO (21:12)
[2018-02-15] VITALS (25 sets, daily range): BP systolic 107–129; BP diastolic 53–75; PULSE 80–99; RESP 16–22; TEMP 36.6–36.9; O2SAT 84–100
--- NOTE | 2018-02-15 | DI.RAD.S_ITS ---
PROCEDURE: XR CHEST 2V INDICATIONS: hypoxemia TECHNIQUE: 2 views of the chest were acquired. COMPARISON: [facility], CR, XR CHEST 1V, 02/13/2018, 19:47. FINDINGS: Surgical changes and devices: None. Lungs and pleura: Small right pleural effusions, no pneumothorax. There is apparent atelectasis at the right lung base that stranding densities have improved. Left lung field remains clear. Mediastinum: Mediastinal contours are normal. Heart size is normal. Aortic calcification and tortuosity. Bones and chest wall: No suspicious bony abnormalities. Soft tissues appear unremarkable. IMPRESSION: 1. Improving probable pneumonia right lower lobe, atelectasis remaining. 2. Small right pleural effusion. Dictated by: Obed Lindsay M.D. on 02/15/2018 at 9:06 Approved by: Obed Lindsay M.D. on 02/15/2018 at 9:09
[2018-02-15] MEDS: ALBUTEROL 2.5 MG/3 ML NEB (ADULT) INH ×3 (03:18→14:25)
[2018-02-15 05:43] LABS: Mean Corpuscular HGB Conc 28.3 % (30-36); Mean Corpuscular Volume 74.3 fL (80-100); Red Blood Cell Count 4.97 X10^6/uL (4.0-5.2); White Blood Cell Count 20.8 X10^3/uL (4.5-11.0)
[2018-02-15 06:01] LABS: Blood Urea Nitrogen 39 mg/dL (7-17); Calcium 8.7 mg/dL (8.4-10.2); Chloride 91 mmol/L (98-107); Estimated Glomerular Filt Rate > 60.0 mL/min (>60); Glucose 151 mg/dL (80-110); HEMOLYSIS 16 (0-50); Potassium 4.5 mmol/L (3.4-5.1); Sodium 142 mmol/L (137-145)
[2018-02-15 06:05] LABS: Hemoglobin 10.5 g/dL (12.0-16.0)
[2018-02-15 06:06] LABS: Hematocrit 36.9 % (36-46)
[2018-02-15 06:07] LABS: Add Manual Diff / Slide Review YES; Platelet Count 634 X10^3/uL (150-400)
[2018-02-15 06:11] LABS: Carbon Dioxide 46 mmol/L (22-32)
--- NOTE | 2018-02-15 06:26 | PC.NURSE ---
Pt is AxOx3. Pt is a mouth breather and likes the nasal cannula to be in her mouth, on 6L at beginning of shift for desatting. Pt desatting during the night from the nasal cannula going in between her teeth and lip. Pt refuses any face or Venti mask so i put 2L NC in her nose, and 4L NC for her mouth for the second half of the night and seems to be satting well at around 94%. SOB and RENDON. Able to pivot to commode with a 1 person assist. Has a cough that is weak. Lungs are crackly, diminished, and have expiratory wheezes. Albuterol 2.5mg INH PRN given during the night at the patients request. Family reports the patient seeming confused at times, playing with the sheets or staring intently at the pillow or sheets. Pt's CO2 is elevated at 46, possibly requiring a bipap at some point though the CO2 level does not seem too high at this point for bipap , pt also does not like any type of mask on her face so having a bipap would be difficult. Edema +3 noted to b/l feet.
[2018-02-15 06:31] LABS: Neutrophils Absolute Manual 19968 /uL (3000-5900); Total Cells Counted 100
[2018-02-15 06:32] LABS: Anisocytosis 2+; Poikilocytosis 1+
[2018-02-15] MEDS: CEFTRIAXONE 1 GM/50 ML FROZ.PIGGY IV ×2 (06:40→19:00)
[2018-02-15] MEDS: methylPREDNISolone 125 MG/2 ML VIAL 60 MG IV ×3 (06:40→20:31)
[2018-02-15] MEDS: ALBUTEROL/IPRATROPIUM 3 ML AMPUL INH ×5 (06:40→23:04)
--- NOTE | 2018-02-15 08:40 | P.PN_ITS ---
Subjective Date Patient Seen: 02/15/18 Time Patient Seen: 08:32 Interval history: Patient is sitting upright in bed and states that she is feeling better today. She feels that her breathing is better. She was able to sleep last night and states she had a good sleep. She is having normal urine output. She is stooling and tolerating p.o. without difficulty. She denies any chest pain or abdominal pain. She is anxious when she can go home Twelve point review of systems negative Exam Vital Signs (past 8 hours): - 02/15/18 01:39 02/15/18 02:28 02/15/18 06:34 Temperature Pulse Rate Respiratory Rate Blood Pressure Pulse Oximetry 94 94 95 02/15/18 07:32 02/15/18 07:35 02/15/18 07:38 Temperature 98.0 F Pulse Rate 85 Respiratory Rate 18 Blood Pressure 107/56 L Pulse Oximetry 92 98 97 02/15/18 08:20 Temperature Pulse Rate Respiratory Rate Blood Pressure Pulse Oximetry 94 Oxygen Delivery Method Nasal Cannula Oxygen Flow Rate 6 Narrative Exam Narrative: Patient is brighter today. She is alert and oriented x3 and sitting upright in the bed. No increased work of breathing. HEENT: Shows mucous membranes moist and pink without any mucosal lesions Neck: Supple without adenopathy, thyromegaly, or jugular venous Distention Chest: Improved air exchange. Still overall poor air exchange with scattered wheeze and rhonchi Cor: Regular rate and rhythm with distant S1 and S2 Abdomen: Positive bowel sounds, soft, nontender, nondistended Extremities: 1 to 2+ pitting edema pedal and lower leg, unchanged from yesterday Objective Labs Result Diagrams: 02/15/18 05:15 02/15/18 05:15 Labs: Laboratory Results - last 24 hr 02/15/18 02/15/18 05:15 05:15 WBC 20.8 H RBC 4.97 Hgb 10.5 L Hct 36.9 MCV 74.3 L MCH 21.0 L MCHC 28.3 L RDW 17.0 H Plt Count 634 H Neut % (Auto) Not Reportable Lymph % (Auto) Not Reportable [place] % (Auto) Not Reportable Eos % (Auto) Not Reportable Baso % (Auto) Not Reportable Total Counted 100 Seg Neutrophils % 90.0 H Band Neutrophils % 6.0 Atypical Lymphs % 2.0 H Monocytes % (Manual) 2.0 Neutrophils # (Manual) H RBC Morphology Not Reportable Poikilocytosis 1+ H Anisocytosis 2+ H Sodium 142 Potassium 4.5 Chloride 91 L Carbon Dioxide 46 H* BUN 39 H Creatinine 0.60 Estimated GFR > 60.0 BUN/Creatinine Ratio 65.0 H Glucose 151 H Calcium 8.7 Assessment & Plan Plan: Assessment/Plan Narrative: 77-year-old female Assessment 1. Acute on chronic respiratory failure secondary to community- acquired pneumonia overall stable with clinical improvement though on higher flow oxygen at this time. Plan: Continue IV ceftriaxone and IV azithromycin. Continue with IV Solu- Medrol. Continue with supplemental oxygen and respiratory therapy treatments. She is on duo nebs. We will do a chest x-ray. We will add a BNP to her a.m. labs to rule out heart failure as a contributing factor. She had a SGOT her last hospitalization. Assessment 2. DVT prophylaxis Plan: Continue on same Lovenox Assessment 3. GI prophylaxis Plan: Continue on Protonix Assessment 4. Previous GI bleed without any acute issues Plan: Continue to follow Assessment 5. Leukocytosis suspect secondary to steroids as well as bacterial infection Plan: Continue with same medications and reassess in a.m. Assessment 6. Anemia suspect multifactorial Plan: Will continue to monitor watch for GI blood loss Assessment 7. Hypertension stable Plan: Continue on outpatient med Quality VTE Deep Vein Thrombosis/Pulmonary Embolism Present on Admission: No
[2018-02-15] MEDS: METOPROLOL ER 25 MG TABLET PO (09:56)
[2018-02-15] MEDS: FUROSEMIDE 20 MG TABLET PO (09:56)
[2018-02-15] MEDS: ENOXAPARIN 40 MG/0.4 ML SYRINGE SUBCUT (09:57)
[2018-02-15] MEDS: SODIUM CHLORIDE 0.9% FLUSH 10 ML IV ×3 (09:57→20:31)
--- NOTE | 2018-02-15 11:16 | PC.NURSE ---
Shift summary: Alert and oriented X3. Has not been confused or forgetful, and has been calling appropriately for assist to BSC, etc. On 6L HFNC with sats mid-upper 90's at rest, de-sats into the 80's with even minimal activity. Lungs CTA, dim throughout. Has scheduled RT tx, and PRN albuterol which she knows she can ask for. Intermittent productive cough, sputum thick and cream-colored. HRR, 3+ edema to BLE's. Denies pain. BT+, flatus+. States she does not feel she needs to have a BM, I never go when I'm in the hospital, but it always happens as soon as I get home. Back in bed at this time. Cont pulse ox in place. Call light in reach, bed alarm on.
--- NOTE | 2018-02-15 14:57 | CM.DPC ---
DCP Cont: Visited with patient and family in room. Patient did state that she did not wish for home health, and daughter, Lalitha who is POA as well. Mentioned retirement, but daughter stated that she did not want her going to a senior living. Wanted patient to work with physical therapy to enable her to go home. P: DCP continue to plan and assess. Patient will continue on ABO, will work with therapy, and plan is to discharge home when stable, for patient lives with her daughter. Esther Cornelius RN/Infant Babysitter
[2018-02-15] MEDS: AZITHROMYCIN 250 MG in DEXTROSE 5% IN WATER 250 ML IV (17:57)
[2018-02-15 19:07] LABS: Acinetobacter baumannii Not Detected (Not Detect); Candida albicans Not Detected (Not Detect); Candida glabrata Not Detected (Not Detect); Candida krusei Not Detected (Not Detect); Candida parapsilosis Not Detected (Not Detect); Candida tropicalis Not Detected (Not Detect); E. coli Not Detected (Not Detect); Enterobacter cloacae complex Not Detected (Not Detect); Enterobacteriaceae species Not Detected (Not Detect); Enterococcus species Not Detected (Not Detect); Haemophilus influenzae Not Detected (Not Detect); Listeria monocytogenes Not Detected (Not Detect); Neisseria meningitidis Not Detected (Not Detect); Proteus species Not Detected (Not Detect); Pseudomonas aeruginosa Not Detected (Not Detect); Serratia marcescens Not Detected (Not Detect); Staphylococcus species Not Detected (Not Detect); Streptococcus agalactiae (Gr B Not Detected (Not Detect); Streptococcus pneumonia Not Detected (Not Detect); Streptococcus pyogenes (Gr A) Not Detected (Not Detect); Streptococcus species Not Detected (Not Detect)
[2018-02-15] MEDS: SIMVASTATIN 20 MG TABLET PO (20:30)
[2018-02-16] VITALS (20 sets, daily range): BP systolic 102–134; BP diastolic 51–69; PULSE 77–95; RESP 10–39; TEMP 32–37.9; O2SAT 81–99; BMI 27.4
[2018-02-16 05:50] LABS: Blood Urea Nitrogen 35 mg/dL (7-17); Calcium 8.5 mg/dL (8.4-10.2); Chloride 89 mmol/L (98-107); Estimated Glomerular Filt Rate > 60.0 mL/min (>60); Glucose 137 mg/dL (80-110); Potassium 4.3 mmol/L (3.4-5.1); Sodium 142 mmol/L (137-145)
[2018-02-16 05:52] LABS: Basophils Percent Auto 0.4 % (0-2); Hematocrit 37.9 % (36-46); Hemoglobin 10.8 g/dL (12.0-16.0); Lymphocytes Percent Auto 2.4 % (25-40); Mean Corpuscular HGB Conc 28.4 % (30-36); Mean Corpuscular Hemoglobin 21.3 PG (26-34); Mean Corpuscular Volume 74.9 fL (80-100); Monocytes Percent Auto 2.5 % (3-14); Neutrophils Absolute Auto 17200 /uL (3000-5900); Neutrophils Percent Auto 94.7 % (50-75); Platelet Count 622 X10^3/uL (150-400); Red Blood Cell Count 5.07 X10^6/uL (4.0-5.2); Red Cell Distribution Width 16.5 % (11.6-14.8); White Blood Cell Count 18.1 X10^3/uL (4.5-11.0)
[2018-02-16 05:54] LABS: Add Manual Diff / Slide Review SLIDE REVIEW
[2018-02-16 05:59] LABS: HEMOLYSIS 19 (0-50)
[2018-02-16 06:00] LABS: Carbon Dioxide 48 mmol/L (22-32)
[2018-02-16 06:24] LABS: Anisocytosis 2+; Poikilocytosis 1+
[2018-02-16] MEDS: methylPREDNISolone 125 MG/2 ML VIAL 60 MG IV ×2 (06:27→14:17)
[2018-02-16] MEDS: CEFTRIAXONE 1 GM/50 ML FROZ.PIGGY IV ×2 (06:28→19:42)
--- NOTE | 2018-02-16 07:37 | PC.NURSE ---
0730 Pt did not have any urine output overnight, bladder scan was 107ml. MD aware and no new orders.
[2018-02-16] MEDS: ALBUTEROL/IPRATROPIUM 3 ML AMPUL INH ×4 (07:46→18:00)
--- NOTE | 2018-02-16 09:27 | P.PN_ITS ---
Subjective Date Patient Seen: 02/16/18 Time Patient Seen: 09:16 Interval history: Says better. Has not been up much. Family, dtrs and sister, with pt OK, requests discussion. 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 Says that while she tells me that she is using the Spiriva she uses it with very little effort and therefore may not be working very well for her. Sister who lives with her and provides her primary support indicates that she can no longer provide that level of support, she does does not have the strength to help with transfers. Patient has indicated a strong distaste for SNF it seems that that must be an option at this point Exam Vital Signs (past 8 hours): - 02/16/18 06:11 02/16/18 07:45 02/16/18 07:47 Temperature 97.0 F L Pulse Rate 90 83 Respiratory Rate 18 23 Blood Pressure 134/56 H Pulse Oximetry 99 86 L 89 L 02/16/18 08:14 Temperature Pulse Rate 83 Respiratory Rate 15 Blood Pressure 128/55 H Pulse Oximetry 94 Oxygen Delivery Method Simple Mask Oxygen Flow Rate 8 Narrative Exam Narrative: Cold up in bed oxygen mask in place mild increased respiratory effort no other distress. HEENT unremarkable neck benign chest quite distant but no wheeze heart regular with low-grade systolic murmur abdomen benign extremities without edema neurologically nonfocal Objective Labs Result Diagrams: 02/16/18 04:59 02/16/18 04:59 Labs: Laboratory Results - last 24 hr 02/13/18 02/15/18 02/16/18 21:52 05:29 04:59 WBC 18.1 H RBC 5.07 Hgb 10.8 L Hct 37.9 MCV 74.9 L MCH 21.3 L MCHC 28.4 L RDW 16.5 H Plt Count 622 H Neut % (Auto) 94.7 H Lymph % (Auto) 2.4 L Pierce % (Auto) 2.5 L Eos % (Auto) 0.0 L Baso % (Auto) 0.4 Neut # (Auto) 59318 H RBC Morphology Not Reportable Poikilocytosis 1+ H Anisocytosis 2+ H Sodium Potassium Chloride Carbon Dioxide BUN Creatinine Estimated GFR BUN/Creatinine Ratio Glucose Calcium B-Natriuretic Peptide 101.0 H A. baumannii (PCR) Not detected Nerissa albicans (PCR) Not detected C. glabrata (PCR) Not detected C. krusei (PCR) Not detected C. parapsilosis (PCR) Not detected C. tropicalis (PCR) Not detected Enterobacteriac sp PCR Not detected E. cloacae complex PCR Not detected Enterococcus sp PCR Not detected E. coli (PCR) Not detected H. influenzae (PCR) Not detected Klebsiella oxytoca PCR Not detected Klebsiella pneumoniae Not detected List. monocytogenes PCR Not detected N. meningitidis (PCR) Not detected Proteus species (PCR) Not detected Serratia marcescens PCR Not detected Staphylococcus sp PCR Not detected Staph aureus (PCR) Not detected mecA-Methicil Res Gene Not Reportable Streptococcus sp PCR Not detected Group A Strep (PCR) Not detected Strep agalactiae (PCR) Not detected Strep pneumoniae (PCR) Not detected P. aeruginosa (PCR) Not detected Tianna/B-Vanco Res Genes Not Reportable KPC-Carbap Res Gene PCR Not Reportable 02/16/18 04:59 WBC RBC Hgb Hct MCV MCH MCHC RDW Plt Count Neut % (Auto) Lymph % (Auto) Pierce % (Auto) Eos % (Auto) Baso % (Auto) Neut # (Auto) RBC Morphology Poikilocytosis Anisocytosis Sodium 142 Potassium 4.3 Chloride 89 L Carbon Dioxide 48 H* BUN 35 H Creatinine 0.50 L Estimated GFR > 60.0 BUN/Creatinine Ratio 70.0 H Glucose 137 H Calcium 8.5 B-Natriuretic Peptide A. baumannii (PCR) Nerissa albicans (PCR) C. glabrata (PCR) C. krusei (PCR) C. parapsilosis (PCR) C. tropicalis (PCR) Enterobacteriac sp PCR E. cloacae complex PCR Enterococcus sp PCR E. coli (PCR) H. influenzae (PCR) Klebsiella oxytoca PCR Klebsiella pneumoniae List. monocytogenes PCR N. meningitidis (PCR) Proteus species (PCR) Serratia marcescens PCR Staphylococcus sp PCR Staph aureus (PCR) mecA-Methicil Res Gene Streptococcus sp PCR Group A Strep (PCR) Strep agalactiae (PCR) Strep pneumoniae (PCR) P. aeruginosa (PCR) Tianna/B-Vanco Res Genes KPC-Carbap Res Gene PCR Assessment & Plan (1) Pneumonia: Problem details: Presumed community-acquired organism. WBC remains high likely due to steroid, O2 demand also remains high Qualifiers: Aspiration pneumonia type: Laterality: bilateral Lung location: lower lobe of lung Pneumonia type: due to unspecified organism Qualified Code( s): J18.1 - Lobar pneumonia, unspecified organism Current visit: Yes Status: Acute (2) Acute exacerbation of chronic obstructive pulmonary disease (COPD): Problem details: No wheezes today but still with high oxygen demand and generalized weakness. Will cut back on cortisone dosing Will restart her Spiriva and a cortisone inhaler and ask RT to be less aggressive with O2 as we are now retaining CO2. Current visit: Yes Status: Acute (3) COPD (chronic obstructive pulmonary disease): Problem details: As above Current visit: No Status: Acute (4) Chronic respiratory failure: Problem details: Chronic O2 dependent will continue same. Current visit: No Status: Acute (5) Weakness: Problem details: Will request PT and OT Current visit: No Status: Acute (6) CO2 retention: Problem details: This I feel is more critical component than the lower O2 so requests that we may be less aggressive with O2 to allow a saturation of high 80s to prevent this problem. Current visit: Yes Status: Acute Plan: Assessment/Plan Narrative: Adjust cortisone dosing, restart Spiriva, start cortisone inhaler, follow labs, request PT and OT. Case management for likely SNF placement. Quality VTE Deep Vein Thrombosis/Pulmonary Embolism Present on Admission: No
[2018-02-16] MEDS: FLUTICASONE 220MCG HFA 120 PUFF INH ×2 (10:10→17:58)
[2018-02-16] MEDS: TIOTROPIUM BROMIDE 18 MCG INHALER INH (10:10)
[2018-02-16] MEDS: ALBUTEROL 2.5 MG/3 ML NEB (ADULT) INH (10:10)
[2018-02-16] MEDS: FUROSEMIDE 20 MG TABLET PO (10:33)
[2018-02-16] MEDS: ENOXAPARIN 40 MG/0.4 ML SYRINGE SUBCUT (10:34)
[2018-02-16] MEDS: METOPROLOL ER 25 MG TABLET PO (10:34)
[2018-02-16] MEDS: SODIUM CHLORIDE 0.9% FLUSH 10 ML IV ×2 (10:34→23:29)
--- NOTE | 2018-02-16 11:37 | PC.NURSE ---
Addendum entered by Erica Carreon R.N. 02/17/18 06:49: Late entry: ABG ordered obtained from MD. Notified R.T. Critical value communicated to and R.T recommendation for BiPap, ok for tx. Charge nurse notified. Report given to JACINTO Valadez. Communicated with family members and pt the new plan of care. Awaiting transfer. Original Note: Addendum entered by Erica Carreon R.N. 02/16/18 14:27: Pt alert and conversational. She reports breathing has improved from this morning since starting new spiriva and flovent No change in RR status. Original Note: Pt sleepy, arouses easily to voice and answers appropriately to questions. She is sitting upright in tri-pod like position leaning on left side, O2 sat fluctuating on mask @ 8L. R.T at bedside administering breathing tx. Per RT and pt's dtrs she is more sleepy today than yesterday and not as perky. Left message with Dr. Huntley's nurse ~1020, requesting possible ABG. Awaiting any new orders. Pt now on HF cannula @ 4L O2 sat 89%. Pts dtrs remain at bedside. Will continue to implement plan of care.
--- NOTE | 2018-02-16 15:33 | CM.DPC ---
DCP Cont: Called and spoke to patient's sister/POA. Was noted in MD's last note, that skilled would be likely. Sister, Lalitha stated that she could not put her sister in a skilled facility, they had an agreement that neither one of them would go into a facility. Did have a discussion with Hospice. Sister feels that it would be better to have patient go home to be comfortable. Sister stated that patient fears Hospice because she is afraid that they will give her Morphine, and that would be the end. Reminded sister that a small dose of morphine could help with breathing. She is aware of what Hospice does, for her was on it. She also has daughters that she feels are trying to push her sister into a skilled facility, and that only come to see patient when she is ill. Sister also has caregiver strain, for she is in the role of caregiver. Discussed resources for home care assistance over the phone. This conversation occured over the phone, but would like to come in and have DCP meet her in patient's room around 1:00 to discuss going home on hospice. PRODUCTION MAINTENANCE TECHNICIAN should also follow up as well. P: Discuss home with Hospice. Esther Cornelius RN/Scaleman
[2018-02-16 15:37] LABS: pH ABG 7.38 (7.35-7.45)
[2018-02-16 15:39] LABS: HCO3 ABG 53 mmol/L (23-27); Oxygen Saturation ABG 84 % (95-100); PCO2 ABG 89.1 mmHg (35-45); PO2 ABG 55 mmHg (80-105); TCO2 ABG > 50 mmol/L (23-27)
[2018-02-16 15:40] LABS: Fractionated Inspired Oxygen 42
--- NOTE | 2018-02-16 16:34 | PC.NURSE ---
Addendum entered by Allyson Vasquez R.N. 02/16/18 21:11: 2110 - Pt request return of Bi-pap. Monitor for tolerance. Call light in reach. Original Note: Addendum entered by Allyson Vasquez R.N. 02/16/18 20:50: 1710 - Dr. Huntley called to check pt status. Notified of anxiety and inability to tolerate Bi-pap. Notified that sats are currently 81% on 5L HFNC. Orders obtained. 1749 - Pt agreeable to take PO Ativan. Given. RT notified. 1939 - Pt out of bed to [facility]. Inc of urine. Brief change, [facility]. Sob with minimal activity. Pt reports readiness to attempt Bi-pap again. - Pt tolerated Bi-pap, then requested return to [place]. 88% on 6.5L HFNC. Original Note: Pt to room from AC 102. Pt reports feeling anxious. States that she is not going to like this. RT at bedside. Attempt to explain procedures and treatment plan. RT placed on Bi-pap, pt tolerated for approximately 5 minutes. Became tearful and very anxious. Family brought in from waiting room to assist with providing reassurance. RT continues to work with pt adjusting mask. Message left for Dr. Huntley.
--- NOTE | 2018-02-16 16:57 | PT.IPTN ---
Current Diagnoses Acidosis (02/13/18) Lobar pneumonia, unspecified organism (02/13/18) Pneumonia, unspecified organism (02/13/18) Chronic obstructive pulmonary disease with (acute) exacerbation (02/13/18) Chronic obstructive pulmonary disease, unspecified (02/13/18) Chronic respiratory failure, unspecified whether with hypoxia or hypercapnia (02/13/18) Weakness (02/13/18) Physical Therapy Treatment Note M3 PT-IP Subjective Start: 02/16/18 16:55 Freq: NEEDED Status: Active Protocol: Document 02/16/18 16:55 AB (Rec: 02/16/18 16:56 AB [id number]) Subjective Physical Therapy Visit Type Notes pt on hold for PT today. pt transferred to ICU due to abnormal ABG readings and nurse stated that they will try bipap on pt and check pt's status tomorrow
[2018-02-16] MEDS: AZITHROMYCIN 250 MG in DEXTROSE 5% IN WATER 250 ML IV (17:46)
[2018-02-16] MEDS: LORazepam 0.5 MG TABLET PO (17:47)
[2018-02-17] VITALS (13 sets, daily range): BP systolic 116–145; BP diastolic 68–79; PULSE 82–91; RESP 10–37; TEMP 31.2–36.9; O2SAT 84–95; BMI 27.3
[2018-02-17] MEDS: methylPREDNISolone 125 MG/2 ML VIAL 60 MG IV ×2 (00:11→06:00)
[2018-02-17] MEDS: LORazepam 0.5 MG TABLET PO ×2 (00:27→05:12)
[2018-02-17] MEDS: ALBUTEROL/IPRATROPIUM 3 ML AMPUL INH ×2 (03:26→09:11)
[2018-02-17 04:31] LABS: Add Manual Diff / Slide Review NO; Basophils Percent Auto 0.1 % (0-2); Eosinophils Percent Auto 0.1 % (2-4); Hematocrit 39.2 % (36-46); Hemoglobin 11.2 g/dL (12.0-16.0); Lymphocytes Percent Auto 1.8 % (25-40); Mean Corpuscular HGB Conc 28.6 % (30-36); Mean Corpuscular Hemoglobin 21.3 PG (26-34); Mean Corpuscular Volume 74.5 fL (80-100); Monocytes Percent Auto 2.7 % (3-14); Neutrophils Absolute Auto 14000 /uL (3000-5900); Neutrophils Percent Auto 95.3 % (50-75); Platelet Count 561 X10^3/uL (150-400); Red Blood Cell Count 5.25 X10^6/uL (4.0-5.2); Red Cell Distribution Width 16.9 % (11.6-14.8); White Blood Cell Count 14.7 X10^3/uL (4.5-11.0)
[2018-02-17 04:45] LABS: Blood Urea Nitrogen 39 mg/dL (7-17); Calcium 8.1 mg/dL (8.4-10.2); Chloride 88 mmol/L (98-107); Estimated Glomerular Filt Rate > 60.0 mL/min (>60); Glucose 141 mg/dL (80-110); Potassium 4.5 mmol/L (3.4-5.1); Sodium 141 mmol/L (137-145)
[2018-02-17 04:53] LABS: HEMOLYSIS 75 (0-50)
[2018-02-17 04:54] LABS: Carbon Dioxide 48 mmol/L (22-32)
[2018-02-17] MEDS: CEFTRIAXONE 1 GM/50 ML FROZ.PIGGY IV (05:21)
--- NOTE | 2018-02-17 06:43 | PC.NURSE ---
NOC Shift: Spent the entire shift attempting to keep pt's sats above 90% w/various O2 delivery systems. Pt refuses to use Bipap for longer than 10 minutes at a time even with Ativan on board. Pt remains alert, oriented when Bipap is on, becomes lethargic, drowsy when it is off. Started the shift on 8L [place] NC then heated [place]if[place] at 50%, and then a 60% Ventimask. SaO2 only up to 88%. BS remain coarse, tight, RR 30 to 40. Adult daughters at bedside discussed Bipap, tx's and DNI status. Daughters understand and are encouraging pt to wear Bipap. Pt requests Ativan. VSS otherwise. Pt tolerated 1 1/2 hrs Bipap 60%, sats remained above 91% w/RR 26 to 33. Currently back to heated Hif[place] 60%. Cont. to monitor pt sedation status.
--- NOTE | 2018-02-17 08:56 | PT.IPNOTE ---
Await results of 1:00 family care conference for PT evaluation this afternoon if appropriate.
--- NOTE | 2018-02-17 09:05 | PM.PN.1 ---
Subjective Date Patient Seen: 02/17/18 Time Patient Seen: 09:05 Interval history: After RT eval yesterday and ABG was done which confirmed a fairly substantial CO2 retention, RTs advice was to try a BiPAP which we did on the floor but which she just would not allow, simply refused she was transferred to ICU where they have tried various measures including high-flow nasal cannula overnight, as well as additional trials of BiPAP, and even after a little Ativan for calming she would not allow the mask to remain in place. So her oxygen level has generally been in 80s and we have labs from this morning. When I arrived I tried to vigorously awaken her she had minimal if any response no verbal response some eye fluttering. And apparently according to her 1 daughter, Salomon, the patient called her over at about 7 this morning and said she wanted the device that she had in the nose to be removed. But that is the last word we have from her. I meet then with patient's sister who I believe is DPOA, as well as eldest daughter Rebecca, youngest daughter Salomon 1 other daughter and [id number] and discuss the status. There is consensus among them that we have little to offer that would provide any quality of life, and in fact they feel she has not had much in the way of quality of life for a while so all agree that we should consider more of a comfort care status withdraw aggressive treatments, consider home with hospice if possible. Family will be looking for document indicating DPOA but my sense is the legal next of kin and absence of that would be her eldest daughter. Exam Vital Signs (past 8 hours): - 02/17/18 02:29 02/17/18 03:27 02/17/18 03:28 Temperature Pulse Rate Respiratory Rate Blood Pressure Pulse Oximetry 90 L 91 93 02/17/18 03:38 02/17/18 04:44 02/17/18 05:00 Temperature 98.3 F Pulse Rate 82 Respiratory Rate 35 H Blood Pressure 116/79 Pulse Oximetry 92 95 91 02/17/18 06:14 02/17/18 07:50 Temperature 98.5 F Pulse Rate 88 Respiratory Rate 32 H Blood Pressure 145/68 H Pulse Oximetry 95 93 Fraction of Inspired Oxygen 60 SaO2/FiO2 Ratio 158 Oxygen Delivery Method Heated High Flow Oxygen Flow Rate 50 Narrative Exam Narrative: Curled up in a ball in bed with high-flow nasal cannula in place did not response to aggressive efforts to arouse. Chest shows distant breath sounds heart regular without murmur extremities neurologic: Benign. Objective Labs Result Diagrams: 02/17/18 04:07 02/17/18 04:07 Labs: Laboratory Results - last 24 hr 02/16/18 02/16/18 02/17/18 15:00 18:09 04:07 WBC 14.7 H RBC 5.25 H Hgb 11.2 L Hct 39.2 MCV 74.5 L MCH 21.3 L MCHC 28.6 L RDW 16.9 H Plt Count 561 H Neut % (Auto) 95.3 H Lymph % (Auto) 1.8 L Sw[place] % (Auto) 2.7 L Eos % (Auto) 0.1 L Baso % (Auto) 0.1 Neut # (Auto) 85073 H ABG pH 7.38 ABG pCO2 89.1 H* ABG pO2 55 L ABG HCO3 53 H ABG Total CO2 > 50 H ABG O2 Saturation 84 L* ABG Base Excess 28.0 H FiO2 42 Sodium Potassium Chloride Carbon Dioxide BUN Creatinine Estimated GFR BUN/Creatinine Ratio Glucose Calcium Nasal Screen MRSA (PCR) Negative for mrsa 02/17/18 04:07 WBC RBC Hgb Hct MCV MCH MCHC RDW Plt Count Neut % (Auto) Lymph % (Auto) [place] % (Auto) Eos % (Auto) Baso % (Auto) Neut # (Auto) ABG pH ABG pCO2 ABG pO2 ABG HCO3 ABG Total CO2 ABG O2 Saturation ABG Base Excess FiO2 Sodium 141 Potassium 4.5 Chloride 88 L Carbon Dioxide 48 H* BUN 39 H Creatinine 0.50 L Estimated GFR > 60.0 BUN/Creatinine Ratio 78.0 H Glucose 141 H Calcium 8.1 L Nasal Screen MRSA (PCR) Assessment & Plan (1) Terminal care: Current visit: Yes Status: Acute (2) Pneumonia: Problem details: Presumed community-acquired organism. WBC remains high likely due to steroid, O2 demand also remains high Qualifiers: Aspiration pneumonia type: Laterality: bilateral Lung location: lower lobe of lung Pneumonia type: due to unspecified organism Qualified Code(s): J18.1 - Lobar pneumonia, unspecified organism Current visit: Yes Status: Acute (3) Acute exacerbation of chronic obstructive pulmonary disease (COPD): Problem details: No wheezes today but still with high oxygen demand and generalized weakness. Will cut back on cortisone dosing Will restart her Spiriva and a cortisone inhaler and ask RT to be less aggressive with O2 as we are now retaining CO2. Current visit: Yes Status: Acute (4) Chronic respiratory failure: Problem details: Chronic O2 dependent will continue same. Current visit: Yes Status: Acute (5) CO2 retention: Problem details: This I feel is more critical component than the lower O2 so requests that we may be less aggressive with O2 to allow a saturation of high 80s to prevent this problem. Confirmed with ABG and unable to see any improvement with BiPAP largely due to patient preference. Current visit: Yes Status: Acute (6) Weakness: Problem details: Will request PT and OT Current visit: Yes Status: Acute Plan: Assessment/Plan Narrative: So we will begin the process of withdrawing care. There is certainly some possibility that she may wake up but at this point if she continues to be at this level of consciousness my since his hospitalization is going to be required until her demise. She wakes up though to the extent possibly home with hospice, will plan that by Ear all of which I emphasized to family. Quality VTE Deep Vein Thrombosis/Pulmonary Embolism Present on Admission: No
[2018-02-17] MEDS: SODIUM CHLORIDE 0.9% FLUSH 10 ML IV ×2 (11:04→21:49)
[2018-02-17] MEDS: MORPHINE 2 MG/ML INJ 1 MG IV ×3 (11:42→22:58)
--- NOTE | 2018-02-17 11:59 | OT.IP.TRT ---
Current Diagnoses Acidosis (02/13/18) Lobar pneumonia, unspecified organism (02/13/18) Pneumonia, unspecified organism (02/13/18) Chronic obstructive pulmonary disease with (acute) exacerbation (02/13/18) Chronic obstructive pulmonary disease, unspecified (02/13/18) Chronic respiratory failure, unspecified whether with hypoxia or hypercapnia (02/13/18) Weakness (02/13/18) Encounter for palliative care (02/13/18) Occupational Therapy Treatment Note M3 OT- IP Subjective and Pain Start: 02/17/18 11:58 Freq: Status: Active Protocol: Document 02/17/18 11:58 MATEUSZ (Rec: 02/17/18 11:59 MATEUSZ [id number]) OT- Subjective Occupational Therapy Visit Type Type Administrative Note Visit Start Time 11:59 Notes OT referral received. Per most recent MD notes, pt is now comfort care only so OT to sign off. No charge.
--- NOTE | 2018-02-17 12:47 | PC.NURSE ---
Day Shift Note Patient unresponsive on AM assessment, not opening eyes and responding to pain stimulus. Did push away biPAP mask and was pulling at heated high flow when attempting to apply. Not tolerating application of biPAP and has not been able to tolerate overnight. Breathing shallow and labored in the 40s, on heated HFNC FiO2 60%. Oxygen sats 94% - RT evaluated at bedside and FiO2 decreased to 50%. Sister, Lalitha, and daughter at bedside. All of the above reviewed with Dr. Huntley who then spoke extensively with sister and daughters regarding plan of care. Decision was made to progress toward comfort care - pt placed on 2L NC by RT, sats 82-87%. Repositioned and brief changed. Transferred to 217 at 1145, report given to Yeimi CASEY. Pt began opening eyes prior to transfer but was unable to answer questions, no speech. 1 mg morphine administered for increased WOB. All belongings with pt and medications.
--- NOTE | 2018-02-17 16:08 | CM.DPC ---
Addendum entered by Keisha Angeles LPN 02/18/18 08:02: Discussion centered around decision for end of life symptom management and family support techniques during this time. Dr. Huntley had advised family that pt likely to pass soon. A check in this morning showed that pt passed last evening 2338 with family at bedside. Original Note: Case received, EMR reviewed for last few days and met at length in conference with SILVIA Doty and multiple family members. Due to lateness of hour will document discussion and plan tomorrow. 45 minutes spent in conference this afternoon 1430 to 1515.
[2018-02-17] MEDS: LORazepam 2 MG/ML SYRINGE 0.5 MG IV (18:14)
--- NOTE | 2018-02-17 20:41 | CM.MNRNOTE ---
Addendum entered by Ruby Abel R.N. 02/18/18 00:21: [place] shift- Called time of - 2338. Family in room, [place] box performed, [employer] called. Original Note: Addendum entered by Ruby Abel R.N. 02/17/18 21:07: 2100- Placed indwelling ferro catheter maintaining sterile field. Pt lying back towards left side with pillows behind head, and under arms and legs. Pt demonstrates comfort using FLACC scoring, FLACC score=0. At this time ferro drained 150mL dark yellow urine. Pt remains on 4.5 L nc humidified O2 with 89-91% SpO2. HR mid 90's. Original Note: Pt has been unresponsive this shift, sitting up in orthopenic position in bed for most of shift. Medicated with 0.5mg ativan @ 1815. Family in room.
[2018-02-17] MEDS: SCOPOLAMINE 1 PATCH TOP (22:00)
--- NOTE | 2018-02-18 01:31 | PC.NURSE ---
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
--- NOTE | 2018-02-18 08:58 | PM.DS.1 ---
History of Present Illness Date Patient Seen: 02/18/18 Time Patient Seen: 08:58 Chief complaint: Lethargic Narrative: SEE H AND P . THIS IS A SUMMARY. Discharge Providers Date of admission: 02/13/18 22:21 Primary care physician: Drake Huntley MD Consults: 02/13/18 19:32 Consult to Respiratory Therapy Evaluate & Treat Comment: Physician Instructions: Evaluate and treat 02/16/18 09:03 Consult to Respiratory Therapy Evaluate & Treat Comment: Keep O2 < 4 l to avoid [id number],SaO2 high 80s Physician Instructions: Evaluate and treat 02/16/18 09:29 Consult to Occupational Therapy Evaluate & Treat Comment: Physician Instructions: Evaluate and treat 02/16/18 09:30 Consult to Metal Ceiling Hanger Routine Comment: Likely needs SNF, resistant 02/16/18 20:43 Consult to Dietitian, Adult Routine Comment: Reason For Exam: assessed at high risk Discharge provider: Drake Huntley MD Summary Discharge Diagnosis: COPD WITH ACUTE EXACERBATION CHRONIC HYPOXIA PNEUMONIA LIKELY COMMUNITY-ACQUIRED GENERALIZED WEAKNESS CARBON DIOXIDE RETENTION, SEVERE Hospital Course: PATIENT ADMITTED AFTER FINDING OF PNEUMONIA ON EVALUATION IN THE EMERGENCY ROOM. SHE WAS ACUTELY HYPOXIC WELL CHRONICALLY SO ADMITTED WITH EXACERBATION DIAGNOSIS. ANTIBIOTICS WERE STARTED RESPIRATORY THERAPY CONSULT IV CORTISONE WELL AGGRESSIVE RESPIRATORY TOILET AND MONITORING AND TREATING ANY OTHER ISSUES THAT AROSE. BY LATE 2ND DAY OF ADMISSION IT WAS CLEAR THAT SHE WAS RETAINING SIGNIFICANT AMOUNTS OF CARBON DIOXIDE HIGH WHICH WAS CONFIRMED WITH A BLOOD GAS ANALYSIS, SO WITH RESPIRATORY THERAPY'S ADVICE IT WAS DEEMED APPROPRIATE TO TRY A BIPAP MASK. PATIENT ESSENTIALLY REFUSED WE DID TRY A LITTLE SEDATION TO HELP CALM HER FEARS BUT SHE CONTINUED TO RESIST ANY ATTEMPT AT MORE AGGRESSIVE RESPIRATORY TREATMENTS. SHE SHOWED DECLINE THROUGH THAT EVENING BY YESTERDAY MORNING SHE WAS NOT RESPONDING TO VOICE OR OTHER ATTEMPTS MORE THAN A MINIMAL PHYSICAL SIGN HER OUT OXYGEN WAS MAINTAINED SOMEWHAT BUT HER CARBON DIOXIDE REMAINED ELEVATED OTHER VITAL SIGNS REMAINED STABLE. SHE HAD MADE IT CLEAR TO SOME OF THE FAMILY MEMBERS THAT SHE DID NOT WANT TO BE TREATED TO AGGRESSIVELY, AND WE HAD A DISCUSSION YESTERDAY MORNING UPON FOR HER DAUGHTER'S AND A SISTER WITH WHOM SHE LIVES WHO WE BELIEVE IS THE DURABLE [id number] FOR HEALTHCARE, WE HAD PERMISSION FOR THAT DISCUSSION FROM THE PATIENT PRIOR TO HER LOSS OF RESPONSIVENESS. DISCUSSED THE LIKELY TERMINAL NATURE OF HER CONDITION AND ADVISED THAT THE FAMILY DISCUSS IT AMONG THEMSELVES FAR HER LONG-TERM CARE. LATER THAT DAY THEY TOLD ME THAT THEY HAD COME TO A CONSENSUS INDICATING A PREFERENCE FOR COMFORT CARE. SO THAT WAS INSTITUTED BACKING OFF ON ALL NONESSENTIAL MEDICATIONS LESS AGGRESSIVE THERAPY OVERALL SHE DID NOT WAKE FAR I KNOW THROUGH THE COURSE OF THE DAY AND EARLY THIS MORNING. I HAVE NOT YET CONTACTED THE FAMILY ALTHOUGH I AM DO UNDERSTAND THAT THEY HAVE BEEN INFORMED. Exam Vital Signs (past 8 hours): Fraction of Inspired Oxygen 0.50 SaO2/FiO2 Ratio [id number] Oxygen Delivery Method High Flow Nasal Cannula Oxygen Flow Rate 15 Narrative Exam Narrative: SEE YESTERDAY'S VISIT I HAVE NOT EVALUATED SINCE THAT TIME. I HAVE REVIEWED NURSING NOTES THOUGH. Objective Labs Result Diagrams: 02/17/18 04:07 02/17/18 04:07 Discharge Plan Discharge Plan Patient Disposition: Discharge Data Primary Care Provider: Drake Huntley Attending Provider: Deann Porter Admit Date/Time: 02/13/18 22:21 Quality VTE Deep Vein Thrombosis/Pulmonary Embolism Present on Admission: No
--- NOTE | 2018-02-18 09:07 | P.DS_ITS ---
History of Present Illness Date Patient Seen: 02/18/18 Time Patient Seen: 08:58 Chief complaint: Lethargic Narrative: SEE H AND P . THIS IS A SUMMARY. Discharge Providers Date of admission: 02/13/18 22:21 Primary care physician: Drake Hunltey MD Consults: 02/13/18 19:32 Consult to Respiratory Therapy Evaluate & Treat Comment: Physician Instructions: Evaluate and treat 02/16/18 09:03 Consult to Respiratory Therapy Evaluate & Treat Comment: Keep O2 < 4 l to avoid [id number],SaO2 high 80s Physician Instructions: Evaluate and treat 02/16/18 09:29 Consult to Occupational Therapy Evaluate & Treat Comment: Physician Instructions: Evaluate and treat 02/16/18 09:30 Consult to Career Technical Supervisor Routine Comment: Likely needs SNF, resistant 02/16/18 20:43 Consult to Dietitian, Adult Routine Comment: Reason For Exam: assessed at high risk Discharge provider: Drake Huntley MD Summary Discharge Diagnosis: COPD WITH ACUTE EXACERBATION CHRONIC HYPOXIA PNEUMONIA LIKELY COMMUNITY-ACQUIRED GENERALIZED WEAKNESS CARBON DIOXIDE RETENTION, SEVERE Hospital Course: PATIENT ADMITTED AFTER FINDING OF PNEUMONIA ON EVALUATION IN THE EMERGENCY ROOM. SHE WAS ACUTELY HYPOXIC WELL CHRONICALLY SO ADMITTED WITH EXACERBATION DIAGNOSIS. ANTIBIOTICS WERE STARTED RESPIRATORY THERAPY CONSULT IV CORTISONE WELL AGGRESSIVE RESPIRATORY TOILET AND MONITORING AND TREATING ANY OTHER ISSUES THAT AROSE. BY LATE 2ND DAY OF ADMISSION IT WAS CLEAR THAT SHE WAS RETAINING SIGNIFICANT AMOUNTS OF CARBON DIOXIDE HIGH WHICH WAS CONFIRMED WITH A BLOOD GAS ANALYSIS, SO WITH RESPIRATORY THERAPY'S ADVICE IT WAS DEEMED APPROPRIATE TO TRY A BIPAP MASK. PATIENT ESSENTIALLY REFUSED WE DID TRY A LITTLE SEDATION TO HELP CALM HER FEARS BUT SHE CONTINUED TO RESIST ANY ATTEMPT AT MORE AGGRESSIVE RESPIRATORY TREATMENTS. SHE SHOWED DECLINE THROUGH THAT EVENING BY YESTERDAY MORNING SHE WAS NOT RESPONDING TO VOICE OR OTHER ATTEMPTS MORE THAN A MINIMAL PHYSICAL SIGN HER OUT OXYGEN WAS MAINTAINED SOMEWHAT BUT HER CARBON DIOXIDE REMAINED ELEVATED OTHER VITAL SIGNS REMAINED STABLE. SHE HAD MADE IT CLEAR TO SOME OF THE FAMILY MEMBERS THAT SHE DID NOT WANT TO BE TREATED TO AGGRESSIVELY, AND WE HAD A DISCUSSION YESTERDAY MORNING UPON FOR HER DAUGHTER'S AND A SISTER WITH WHOM SHE LIVES WHO WE BELIEVE IS THE DURABLE [id number] FOR HEALTHCARE, WE HAD PERMISSION FOR THAT DISCUSSION FROM THE PATIENT PRIOR TO HER LOSS OF RESPONSIVENESS. DISCUSSED THE LIKELY TERMINAL NATURE OF HER CONDITION AND ADVISED THAT THE FAMILY DISCUSS IT AMONG THEMSELVES FAR HER LONG-TERM CARE. LATER THAT DAY THEY TOLD ME THAT THEY HAD COME TO A CONSENSUS INDICATING A PREFERENCE FOR COMFORT CARE. SO THAT WAS INSTITUTED BACKING OFF ON ALL NONESSENTIAL MEDICATIONS LESS AGGRESSIVE THERAPY OVERALL SHE DID NOT WAKE FAR I KNOW THROUGH THE COURSE OF THE DAY AND EARLY THIS MORNING. I HAVE NOT YET CONTACTED THE FAMILY ALTHOUGH I AM DO UNDERSTAND THAT THEY HAVE BEEN INFORMED. Exam Vital Signs (past 8 hours): Fraction of Inspired Oxygen 0.50 SaO2/FiO2 Ratio [id number] Oxygen Delivery Method High Flow Nasal Cannula Oxygen Flow Rate 15 Narrative Exam Narrative: SEE YESTERDAY'S VISIT I HAVE NOT EVALUATED SINCE THAT TIME. I HAVE REVIEWED NURSING NOTES THOUGH. Objective Labs Result Diagrams: 02/17/18 04:07 02/17/18 04:07 Discharge Plan Discharge Plan Patient Disposition: Discharge Data Primary Care Provider: Drake Huntley Attending Provider: Deann Porter Admit Date/Time: 02/13/18 22:21 Quality VTE Deep Vein Thrombosis/Pulmonary Embolism Present on Admission: No
== END 2018-02-18 01:50 | disposition expired | DRG 189 ==
LOC: ED 21:16 → AC 22:23 → ICU 12-27 15:46
PROVIDERS: Admitting Provider Family Medicine; Emergency Provider Emergency Medicine; Family Provider Family Medicine; PCP Family Medicine; Visit Provider Family Medicine
DX: J96.21 Acute and chronic respiratory failure with hypoxia (principal); J18.9 Pneumonia, unspecified organism; J44.0 Chronic obstructive pulmonary disease with (acute) lower respiratory infection; J44.1 Chronic obstructive pulmonary disease with (acute) exacerbation; E87.2 Acidosis; J96.12 Chronic respiratory failure with hypercapnia; Z99.81 Dependence on supplemental oxygen; Z87.891 Personal history of nicotine dependence; I10 Essential (primary) hypertension; E78.5 Hyperlipidemia, unspecified; R60.9 Edema, unspecified; Z66 Do not resuscitate; D64.9 Anemia, unspecified; Z91.19 Patient's noncompliance with other medical treatment and regimen; Z51.5 Encounter for palliative care
CPT/HCPCS: 36415; 36591; 36600; 71045; 71046; 80048; 81001; 82550; 82553; 82805; 83605; 83735; 83880; 84145; 84484; 85025; 87040; 87086; 87150; 87205; 87797; 93005; 94150; 94640; 94660; 94760; 94762; 96361; 96365; 96375; 99285; C9113; J1650; J2060; J2270; J2930; J7613